=== PATIENT | male | born 1935 | race Caucasian/White ===

== ENCOUNTER → 2018-02-13 | Outpatient (CLI) | payer MEDICARE, BC ==
[~2018-02-13] MED LIST: ANDRONATE200 MG/ML IM; ANORO IH; ASPIRIN E.C. 8181 MG PO; BENADRYL25 M2 PO; BETIMOL 0.5% OPH5 ML OU; CARDI-OMEGA1000 MG PO; CLARITIN 1010 MG/TAB PO; DUO-KAPS1 CAP PO; FLONASEALLERGY NS; LIPITOR20 MG PO; MONODOX100 PO; MUCINEX1200 MG PO; RT SPIRIVA18 MCG IH; THEO-DUR 2200 MG/TAB PO; TYLENOL PM EXTR1 TA1 PO; ZYRTEC 10MG10 MG PO
== END ==
LOC: COL.RAD 09:44
DX: D70.9 Neutropenia, unspecified (principal)

== ENCOUNTER → 2018-02-15 | Outpatient (CLI) | payer MEDICARE, BC | LOC: MHCPAIN 08:55 | DX: G89.29 Other chronic pain (principal); M47.817 Spondylosis without myelopathy or radiculopathy, lumbosacral region; M54.16 Radiculopathy, lumbar region; M53.3 Sacrococcygeal disorders, not elsewhere classified; M48.061 Spinal stenosis, lumbar region without neurogenic claudication; M43.17 Spondylolisthesis, lumbosacral region | CPT/HCPCS: G0463 ==

== ENCOUNTER → 2018-02-15 | Outpatient (CLI) | payer MEDICARE, BC | LOC: COL.RAD 13:25 | DX: S33.39XA Dislocation of other parts of lumbar spine and pelvis, initial encounter (principal); M48.061 Spinal stenosis, lumbar region without neurogenic claudication; M54.16 Radiculopathy, lumbar region ==

== ENCOUNTER → 2018-03-20 | Outpatient (CLI) | payer MEDICARE, BC | LOC: MHCPAIN 14:11 | DX: G89.29 Other chronic pain (principal); M47.817 Spondylosis without myelopathy or radiculopathy, lumbosacral region; M54.16 Radiculopathy, lumbar region; M53.3 Sacrococcygeal disorders, not elsewhere classified; M48.061 Spinal stenosis, lumbar region without neurogenic claudication; M43.17 Spondylolisthesis, lumbosacral region | CPT/HCPCS: G0463 ==

== ENCOUNTER → 2018-03-28 | Outpatient (CLI) | payer MEDICARE, BC | LOC: MHCPAIN 10:08 | DX: M47.817 Spondylosis without myelopathy or radiculopathy, lumbosacral region (principal); M43.17 Spondylolisthesis, lumbosacral region | CPT/HCPCS: J1040; Q9967 ==

== ENCOUNTER 2018-08-15 09:29 | Emergency (ER) | payer MEDICARE, BC ==
[~2018-08-15] VITALS: Ht 180.3 cm; Wt 88.6 kg
[2018-08-15 09:31] VITALS: TEMP 98
[2018-08-15] MEDS ORDERED: EPA FISH OIL1 SGL PO (10:05)
[2018-08-15] MEDS ORDERED: XELPROS2.5 ML OP (10:07)
[2018-08-15] MEDS ORDERED: DEPO-TESTOS100 MG/ML IM (10:09)
[2018-08-15] MEDS ORDERED: CENTRUM SILVER1 TAB PO (10:10)
[2018-08-15] MEDS ORDERED: SIMBRINZA 0.2%-18 ML OU (10:11)
[2018-08-15] MEDS ORDERED: ALLEGRA 180MG180 MG PO (10:11)
[2018-08-15] MEDS ORDERED: PROBIOTIC FORMU1 CAP PO (10:15)
[2018-08-15] MEDS ORDERED: LEVAQUIN 5500 MG/TA1 PO (10:15)
[2018-08-15 10:33] LABS: BASO % 0.5 % (0.0-2.0); EOS # 0.1 (0.0-0.7); GRAN # 1.1 (1.4-6.5); GRAN % 30.5 % (42.2-75.2); HEMATOCRIT 40.8 % (42.0-52.0); LYMPH # 1.8 (1.2-3.4); LYMPH % 47.9 % (20.0-51.0); MEAN CELL VOLUME 96 fl (80.0-100.0); MEAN CORPUSCULAR HEMOGLOBIN 33 pg (27.0-31.0); MEAN CORPUSCULAR HGB CONC 34 g/dl (33.0-37.0); MEAN PLATELET VOLUME 8.6 fl (7.4-10.4); MONO # 0.7 (0.1-0.6); MONO % 18.1 % (1.7-9.3); PLATELET COUNT 168 K/mm3 (130-400); RED BLOOD COUNT 4.25 M/mm3 (4.20-5.60); REDCELL DISTRIBUTION WIDTH-CV 12.3 % (11.5-14.5)
[2018-08-15 10:42] LABS: ALANINE AMINOTRANSFERASE 40 U/L (21-72); ALBUMIN 4.3 gm/dL (3.5-5.0); ALKALINE PHOSPHATASE 51 U/L (50-136); ANION GAP 5 mmol/L (7-16); AST,SGOT 28 U/L (15-37); BILIRUBIN,TOTAL 0.9 mg/dL (0.0-1.0); BLOOD UREA NITROGEN 18 mg/dL (9-20); CALCIUM 9.3 mg/dL (8.4-10.2); CARBON DIOXIDE 29 mmol/L (22-30); CHLORIDE 108 mmol/L (98-107); CREATININE, serum 1.01 mg/dL (0.66-1.25); GLUCOSE 112 mg/dL (74-106); POTASSIUM 4.7 mmol/L (3.4-5.0); SODIUM 142 mmol/L (137-145); TOTAL PROTEIN 7.7 gm/dL (6.4-8.2)
[2018-08-15 10:57] LABS: TROPONIN-I < 0.012 ng/mL (0.000-0.034)
[2018-08-15 11:28] LABS: COLLECTION METHOD CLEAN CATCH
[2018-08-15 11:35] LABS: MUCOUS Present /lpf; PH 5 (5-8); SQUAMOUS EPITHELIAL None Seen /hpf; URINE APPEARANCE Clear; URINE BACTERIA None Seen /hpf; URINE BILIRUBIN Negative (NEGATIVE); URINE BLOOD Negative (NEGATIVE); URINE COLOR Yellow; URINE GLUCOSE Negative (NEGATIVE); URINE KETONE Negative (NEGATIVE); URINE LEUKOCYTE ESTERASE Negative (NEGATIVE); URINE NITRATE Negative (NEGATIVE); URINE PROTEIN(semi-quant) Negative (NEGATIVE); URINE RBC 0-2 /hpf; URINE UROBILINOGEN Negative (NEGATIVE)
[2018-08-15] MEDS ORDERED: PREDNISONE20 MG PO (13:21)
[2018-08-15 13:28] VITALS: BP 165/79; PULSE 95
== END 2018-08-15 13:28 | disposition home or self-care (01) ==
LOC: COL.ER 09:29
PROVIDERS: Emergency Medicine
DX: J44.1 Chronic obstructive pulmonary disease with (acute) exacerbation (principal); I10 Essential (primary) hypertension; E78.5 Hyperlipidemia, unspecified; G47.33 Obstructive sleep apnea (adult) (pediatric); I65.29 Occlusion and stenosis of unspecified carotid artery; Z79.82 Long term (current) use of aspirin; Z79.899 Other long term (current) drug therapy; Z87.891 Personal history of nicotine dependence; Z86.79 Personal history of other diseases of the circulatory system
CPT/HCPCS: J2930

== ENCOUNTER 2021-01-07 09:33 | Day surgery (SDC) | payer MEDICARE, BC ==
[~2021-01-07] VITALS: Ht 177.8 cm; Wt 36.4 kg
[~2021-01-07 09:33] MED LIST changes: +ALLEGRA 180MG180 MG PO; +CENTRUM SILVER1 TAB PO; +DEPO-TESTOS100 MG/ML IM; +EPA FISH OIL1 SGL PO; +LEVAQUIN 5500 MG/TA1 PO; +PREDNISONE20 MG PO; +PROBIOTIC FORMU1 CAP PO; +SIMBRINZA 0.2%-18 ML OU; +XELPROS2.5 ML OP
[2021-01-07 10:20] VITALS: BP 130/80; PULSE 69; TEMP 96.6
[2021-01-07] MEDS ORDERED: ROCKLATAN 0.022.5 ML OP (10:38)
[2021-01-07] MEDS ORDERED: B COMPLEX #11 TA1 PO (10:40)
[2021-01-07] MEDS ORDERED: VITAMIN D31000 IU PO (10:41)
[2021-01-07] MEDS ORDERED: NATURAL IRON65 MG (10:42)
[2021-01-07] MEDS ORDERED: SINGULAIR 110 MG/TAB PO (10:43)
[2021-01-07] MEDS ORDERED: ZOLOFT 50MG50 MG PO (10:44)
[2021-01-07 12:10] VITALS: BP 109/91; PULSE 75; TEMP 97.6
--- NOTE | 2021-01-07 12:10 | NUR ---
TO [facility] 5 PER CART FROM ENDOSCOPY. ALERT ORIENTED X3, TALKING WITH AND STAFF. AMBULATED TO RECLINER WITH ASSIST. RECEIVED BLACK COFFEE PER REQUEST, DENIES WANTING ANYTHING TO EAT. STATED HE WANTS TO GO EAT OUT AFTER THIS.
[2021-01-07 12:25] VITALS: BP 113/66; PULSE 59
--- NOTE | 2021-01-07 12:30 | NUR ---
DISCONTINUED IV AND INT- CATHETER INTACT. PATIENT GETTING DRESSED.
--- NOTE | 2021-01-07 13:00 | NUR ---
WAITING FOR DR ORO. OFFERED PATIENT AND HIS SOMETHING MORE TO EAT OR DRINK AND HE DECLINED.
--- NOTE | 2021-01-07 13:30 | NUR ---
DR OCHOALT INTO TALK WITH PATIENT AND HIS .
--- NOTE | 2021-01-07 13:45 | NUR ---
DISCHARGED PER WC BY NURSING STAFF TO PRIVATE CAR IN CARE OF HIS RIVERA.
== END 2021-01-07 14:21 | disposition home or self-care (01) ==
LOC: SDCO 09:33
DX: K22.70 Barrett's esophagus without dysplasia (principal); D12.2 Benign neoplasm of ascending colon; K21.00 Gastro-esophageal reflux disease with esophagitis, without bleeding; D50.9 Iron deficiency anemia, unspecified; K92.1 Melena; K57.30 Diverticulosis of large intestine without perforation or abscess without bleeding; K59.00 Constipation, unspecified; I71.4 Abdominal aortic aneurysm, without rupture; J44.9 Chronic obstructive pulmonary disease, unspecified; F32.9 Major depressive disorder, single episode, unspecified; E78.5 Hyperlipidemia, unspecified; K76.0 Fatty (change of) liver, not elsewhere classified; G47.33 Obstructive sleep apnea (adult) (pediatric); I65.29 Occlusion and stenosis of unspecified carotid artery; M19.90 Unspecified osteoarthritis, unspecified site; Z98.890 Other specified postprocedural states; Z79.891 Long term (current) use of opiate analgesic; Z20.822 Contact with and (suspected) exposure to COVID-19; Z85.828 Personal history of other malignant neoplasm of skin; Z79.899 Other long term (current) drug therapy; Z79.52 Long term (current) use of systemic steroids; Z80.3 Family history of malignant neoplasm of breast; Z80.42 Family history of malignant neoplasm of prostate; Z82.61 Family history of arthritis
CPT/HCPCS: J2704; J7120

== ENCOUNTER 2021-01-19 23:42 | Emergency (ER) | payer MEDICARE, BC ==
[~2021-01-19] VITALS: Ht 180.3 cm; Wt 81.8 kg
[~2021-01-19 23:42] MED LIST changes: +B COMPLEX #11 TA1 PO; +NATURAL IRON65 MG; +ROCKLATAN 0.022.5 ML OP; +SINGULAIR 110 MG/TAB PO; +VITAMIN D31000 IU PO; +ZOLOFT 50MG50 MG PO
[2021-01-19 23:49] VITALS: TEMP 98.1
[2021-01-20 00:28] LABS: BASO % 0.2 % (0.0-2.0); EOS # 0.1 (0.0-0.7); EOS % 0.5 % (0-4.0); GRAN # 8.2 (1.4-6.5); GRAN % 74.8 % (42.2-75.2); HEMOGLOBIN 13.6 g/dl (13.5-18.0); LYMPH # 1.3 (1.2-3.4); LYMPH % 12.1 % (20.0-51.0); MEAN CELL VOLUME 98 fl (80.0-100.0); MEAN CORPUSCULAR HEMOGLOBIN 33 pg (27.0-31.0); MEAN CORPUSCULAR HGB CONC 33 g/dl (33.0-37.0); MONO # 1.3 (0.1-0.6); MONO % 11.8 % (1.7-9.3); PLATELET COUNT 222 K/mm3 (130-400); RED BLOOD COUNT 4.17 M/mm3 (4.20-5.60); REDCELL DISTRIBUTION WIDTH-CV 14.9 % (11.5-14.5)
[2021-01-20 00:32] LABS: INR 1.2 (0.8-3.0); PROTHROMBIN TIME 13.5 SECONDS (9.7-12.8)
[2021-01-20 00:33] LABS: ALBUMIN 4.1 gm/dL (3.5-5.0); CALCIUM 9.3 mg/dL (8.4-10.2); CREATININE, serum 0.94 (0.66-1.25); MAGNESIUM 2.3 mg/dL (1.6-2.3); POTASSIUM 3.9 mmol/L (3.4-5.0); TOTAL PROTEIN 7.5 gm/dL (6.4-8.2)
[2021-01-20 00:45] LABS: TROPONIN-I 0.013 ng/mL (0.000-0.035)
[2021-01-20 01:40] VITALS: BP 101/55; PULSE 69
== END 2021-01-20 01:53 | disposition short-term general hospital (02) ==
LOC: COL.ER 23:42
PROVIDERS: Emergency Medicine
DX: I48.91 Unspecified atrial fibrillation (principal); J44.9 Chronic obstructive pulmonary disease, unspecified; E78.5 Hyperlipidemia, unspecified; R79.89 Other specified abnormal findings of blood chemistry; Z87.891 Personal history of nicotine dependence; Z79.899 Other long term (current) drug therapy; Z79.51 Long term (current) use of inhaled steroids

== ENCOUNTER → 2021-02-07 | Outpatient (CLI) | payer MEDICARE, BC ==
[2021-02-07 18:09] LABS: COLLECTION METHOD CLEAN CATCH
[2021-02-07 18:25] LABS: MUCOUS Present /lpf; PH 5 (5-8); SQUAMOUS EPITHELIAL 0-2 /hpf; URINE APPEARANCE Turbid; URINE BACTERIA Many /hpf; URINE BILIRUBIN Negative (NEGATIVE); URINE BLOOD 2+ (NEGATIVE); URINE COLOR Yellow; URINE GLUCOSE Negative (NEGATIVE); URINE KETONE Negative (NEGATIVE); URINE LEUKOCYTE ESTERASE Negative (NEGATIVE); URINE NITRATE Negative (NEGATIVE); URINE PROTEIN(semi-quant) Negative (NEGATIVE); URINE UROBILINOGEN >=4.0 mg/dL (NEGATIVE)
== END ==
LOC: ZCOL.LAB 12:46
DX: R31.9 Hematuria, unspecified (principal)